=== PATIENT | male | born 1990 ===

== ENCOUNTER 2019-04-19 16:49 | Emergency (ER) | payer OTHER ==
[2019-04-19 19:04] LABS: ABS Lymphocytes 0.3 10^3/ul (1.0-4.8); ABS Monocytes 0.3 10^3/ul (0-0.8); ABS Neutrophils 6.8 10^3/ul (1.5-7.7); Eosinophil % 0.1 %; Hematocrit 44 % (42-52); Hemoglobin 15.1 g/dL (14.0-18.0); Lymphocyte % 4.6 %; Mean Corpuscular HGB Conc 34 g/dL (31-36); Mean Corpuscular Hemoglobin 27 pg (27-31); Mean Corpuscular Volume 80 fL (80-94); Mean Platelet Volume 8.5 fL (7.4-10.4); Platelet Count 221 10^3/uL (150-450); Red Blood Count 5.52 10^6 /uL (4.18-5.48); Red Cell Distribution Width 14 % (10-15); White Blood Count 7.5 10^3/uL (3.5-10.8)
[2019-04-19 19:21] LABS: Albumin 4.6 g/dL (3.2-5.2); Albumin/Globulin Ratio 1.5 (1-3); BUN/Creatinine Ratio 11.2 (8-20); Calcium 9.3 mg/dL (8.6-10.3); EGFR African American 121.4 (>60); EGFR Non-African American 100.4 (>60); Globulin 3.1 g/dL (2-4); Potassium 3.8 mmol/L (3.5-5.0); Total Bilirubin 0.9 mg/dL (0.2-1.0); Total Protein 7.7 g/dL (6.4-8.9)
[2019-04-19 20:28] VITALS: BP 146/75
== END 2019-04-19 22:50 | disposition left against medical advice (07) ==
LOC: ED 16:49
DX: Z53.21 Procedure and treatment not carried out due to patient leaving prior to being seen by health care provider (principal); R11.10 Vomiting, unspecified
CPT/HCPCS: 36415; 80053; 85025; 99282